=== PATIENT | female | born 1945 ===

== ENCOUNTER 2023-02-04 19:08 | Emergency (ER) | payer OTHER ==
[~2023-02-04] VITALS: Ht 160 cm; Wt 47.6 kg
[2023-02-04 19:17] VITALS: BP 182/78
--- NOTE | 2023-02-04 19:37 | NUR ---
MD Rizo at bedside examining pt.
--- NOTE | 2023-02-04 20:17 | NUR ---
Pt taken to CT for imaging.
--- NOTE | 2023-02-04 20:18 | NUR ---
PT RETURN FROM CT
--- NOTE | 2023-02-04 20:51 | NUR ---
Spoke to daughter Melinda and updated her on pt condition.
[2023-02-04] MEDS ORDERED: risperiDONE 1 MG TAB PO SCH (22:30)
--- NOTE | 2023-02-05 01:27 | NUR ---
Pt noted resting comfortably in bed.
[2023-02-05 04:05] VITALS: BP 153/75
--- NOTE | 2023-02-05 04:08 | NUR ---
PT RAN OUT OF ROOM 2 TIMES, PT WAS SCREAMING AND RUNNING TOWARD DOOR. PT REDIRECTED AND BECAME AGGRESSIVE, WAS TRYING TO HIT AND BITE STAFF. PT TAKEN BACK TO ER BED 3.
--- NOTE | 2023-02-05 04:10 | NUR ---
EMT AT BEDSIDE SITTER.
[2023-02-05] MEDS ORDERED: HALOPERIDOL IM 5 MG/ML VIAL IM ONE (04:15)
[2023-02-05] MEDS ORDERED: LORazepam 2 MG/ML VIAL IM ONE (04:15)
--- NOTE | 2023-02-05 05:56 | NUR ---
Pending d/c back to facility; Transportation pickling grader scheduled for 0600.
--- NOTE | 2023-02-05 06:37 | NUR ---
[facility] AT BEDSIDE
--- NOTE | 2023-02-05 06:40 | NUR ---
PT TAKEN BY [facility] BACK TO HOME FACILITY
== END 2023-02-05 06:40 | disposition home or self-care (01) ==
LOC: MED 19:08
DX: S09.90XA Unspecified injury of head, initial encounter (principal); R11.2 Nausea with vomiting, unspecified; F03.90 Unspecified dementia, unspecified severity, without behavioral disturbance, psychotic disturbance, mood disturbance, and anxiety; Z88.0 Allergy status to penicillin; Z88.5 Allergy status to narcotic agent; Z88.8 Allergy status to other drugs, medicaments and biological substances; W01.198A Fall on same level from slipping, tripping and stumbling with subsequent striking against other object, initial encounter; Y92.89 Other specified places as the place of occurrence of the external cause; Y93.89 Activity, other specified; Y99.8 Other external cause status
CPT/HCPCS: 70450; 72125; 96372; 99285; J1630; J2060